=== PATIENT | male | born 1990 | race Caucasian/White ===

== ENCOUNTER → 2017-03-28 | Outpatient (CLI) | payer MEDICAID ==
[~2017-03-28] MED LIST: ASPIRIN 81M81 MG/TA2 PO; CEFTIN250 M1 PO; CEFTIN500 MG PO; CETIRIZINE; COLACE 100100 MG/CAP PO; DEPAKOTE; IBUPROFEN; LASIX 40MG TABL40 MG PO; LEVAQUIN 750MG750 M1 PO; NO HOME MEDICATIONS; NORCO 325 MG-51 TAB PO; NORCO 325 MG-7.1 TAB PO; PERCOCET 325 MG1 TA2 PO; PREDNISONE20 MG PO; PROVENTIL0.09 MG/A1 IH; ROXICODONE 55 MG/TAB PO; TYLENOL 325MG325 MG PO; TYLENOL 500MG500 MG PO; ZITHROMAX Z PA250 MG PO; ZITHROMAX500 M2 PO; ZOFRAN 4MG T4 MG/TAB PO
== END ==
LOC: ZCOL.LAB 16:31
DX: L72.3 Sebaceous cyst (principal)

== ENCOUNTER → 2017-08-17 | Outpatient (CLI) | payer MEDICAID ==
[2017-08-17 12:01] LABS: PH 5 (5-8); SQUAMOUS EPITHELIAL None Seen /hpf; URINE APPEARANCE Clear; URINE BACTERIA None Seen /hpf; URINE BILIRUBIN Negative (NEGATIVE); URINE BLOOD 3+ (NEGATIVE); URINE COLOR Yellow; URINE GLUCOSE Negative (NEGATIVE); URINE KETONE Negative (NEGATIVE); URINE UROBILINOGEN Negative (NEGATIVE); URINE WBC 0-2 /hpf
== END ==
LOC: COL.LAB 11:17
PROVIDERS: Nurse Practitioner Family
DX: R31.9 Hematuria, unspecified (principal); R35.0 Frequency of micturition

== ENCOUNTER → 2017-08-30 | Outpatient (CLI) | payer MEDICAID | LOC: COL.RAD 08:05 | DX: Q60.4 Renal hypoplasia, bilateral (principal) ==

== ENCOUNTER 2017-10-03 16:00 | Inpatient (IN) | payer MEDICAID ==
[~2017-10-03] VITALS: Ht 185.4 cm; Wt 119.7 kg
[2017-10-03] VITALS (246 sets, daily range): BP systolic 140; BP diastolic 62; PULSE 108; TEMP 99.5; O2SAT 90–100
[2017-10-03] MEDS ORDERED: XANAX 1MG1 MG PO (16:26)
[2017-10-03] MEDS ORDERED: SYNTHROID0.075 MG/T PO (16:26)
[2017-10-03 16:41] LABS: HEMATOCRIT 38.3 % (42.0-52.0); HEMOGLOBIN 13.1 g/dl (13.5-18.0); MEAN CELL VOLUME 88 fl (80.0-100.0); MEAN CORPUSCULAR HEMOGLOBIN 30 pg (27.0-31.0); MEAN CORPUSCULAR HGB CONC 34 g/dl (33.0-37.0); PLATELET COUNT 162 K/mm3 (130-400); RED BLOOD COUNT 4.35 M/mm3 (4.20-5.60)
[2017-10-03 16:47] LABS: WHITE BLOOD COUNT 1.8 K/mm3 (4.8-10.8)
[2017-10-03 16:48] LABS: ADD PATHOLOGY DIFF REVIEW NO
[2017-10-03 16:52] LABS: ADJUSTED CALCIUM 9.4 mg/dL (8.4-10.2); ALBUMIN 3.8 gm/dL (3.5-5.0); BILIRUBIN,TOTAL 3.4 mg/dL (0.0-1.0); C-REACTIVE PROTEIN 0.7 mg/dL (0.0-0.9); CALCIUM 9.2 mg/dL (8.4-10.2); CREATININE, serum 0.88 mg/dL (0.66-1.25); POTASSIUM 3.4 mmol/L (3.4-5.0); TOTAL PROTEIN 6.8 gm/dL (6.4-8.2)
[2017-10-03 17:29] LABS: BAND 16 % (0-10); EOSINOPHIL 4 % (0-4); LYMPHOCYTE 12 % (20.0-51.0); NEUTROPHILS 68 % (42.0-75.2); PLATELET ESTIMATE NORMAL (NORMAL); TOTAL CELLS COUNTED 25
[2017-10-03 17:40] LABS: COLLECTION METHOD CLEAN CATCH
[2017-10-03 17:46] LABS: MUCOUS Present /lpf; PH 5 (5-8); SQUAMOUS EPITHELIAL 0-2 /hpf; URINE APPEARANCE Clear; URINE BACTERIA None Seen /hpf; URINE BILIRUBIN Negative (NEGATIVE); URINE BLOOD 3+ (NEGATIVE); URINE COLOR Amber; URINE GLUCOSE Negative (NEGATIVE); URINE KETONE 1+ (NEGATIVE); URINE LEUKOCYTE ESTERASE Negative (NEGATIVE); URINE PROTEIN(semi-quant) Negative (NEGATIVE); URINE WBC 0-2 /hpf
[2017-10-04] VITALS (1189 sets, daily range): BP systolic 93–108; BP diastolic 37–45; PULSE 100–118; TEMP 99.7–103.3; O2SAT 79–100
[2017-10-04 05:56] LABS: HEMATOCRIT 40.1 % (42.0-52.0); HEMOGLOBIN 13.7 g/dl (13.5-18.0); MEAN CELL VOLUME 90 fl (80.0-100.0); MEAN CORPUSCULAR HEMOGLOBIN 31 pg (27.0-31.0); MEAN CORPUSCULAR HGB CONC 34 g/dl (33.0-37.0); MEAN PLATELET VOLUME 9.5 fl (7.4-10.4); PLATELET COUNT 148 K/mm3 (130-400); RED BLOOD COUNT 4.48 M/mm3 (4.20-5.60); WHITE BLOOD COUNT 12.4 K/mm3 (4.8-10.8)
[2017-10-04 06:03] LABS: ADD PATHOLOGY DIFF REVIEW NO
[2017-10-04 06:06] LABS: CALCIUM 7.9 mg/dL (8.4-10.2); CREATININE, serum 1.61 mg/dL (0.66-1.25); POTASSIUM 3.8 mmol/L (3.4-5.0)
[2017-10-04 06:16] LABS: BAND 24 % (0-10); EOSINOPHIL 3 % (0-4); LYMPHOCYTE 2 % (20.0-51.0); METAMYELOCYTE 1 % (0-0); NEUTROPHILS 67 % (42.0-75.2); ROULEAUX 1+; TOTAL CELLS COUNTED 100; TOXIC GRANULATION PRESENT
[2017-10-04 06:17] LABS: ANISOCYTOSIS 1+; MICROCYTOSIS 1+; POIKILOCYTOSIS 1+
[2017-10-04 23:18] LABS: ADJUSTED CALCIUM 8.1 mg/dL (8.4-10.2); ALBUMIN 2.4 gm/dL (3.5-5.0); CALCIUM 6.8 mg/dL (8.4-10.2); CREATININE, serum 3.24 mg/dL (0.66-1.25); POTASSIUM 4.3 mmol/L (3.4-5.0); TOTAL PROTEIN 4.9 gm/dL (6.4-8.2)
[2017-10-05] VITALS (310 sets, daily range): BP systolic 92–126; BP diastolic 38–74; PULSE 74–100; TEMP 97–99.9; O2SAT 81–100
[2017-10-05 05:00] LABS: MEAN CELL VOLUME 90 fl (80.0-100.0); MEAN CORPUSCULAR HGB CONC 33 g/dl (33.0-37.0); MEAN PLATELET VOLUME 10.3 fl (7.4-10.4); PLATELET COUNT 117 K/mm3 (130-400); WHITE BLOOD COUNT 13.5 K/mm3 (4.8-10.8)
[2017-10-05 05:08] LABS: ADJUSTED CALCIUM 8.1 mg/dL (8.4-10.2); ALBUMIN 2.5 gm/dL (3.5-5.0); BILIRUBIN,TOTAL 5.6 mg/dL (0.0-1.0); CALCIUM 6.9 mg/dL (8.4-10.2); CREATININE, serum 3.61 mg/dL (0.66-1.25); POTASSIUM 4.3 mmol/L (3.4-5.0); TOTAL PROTEIN 5.1 gm/dL (6.4-8.2)
[2017-10-05 05:17] LABS: HEMATOCRIT 35.1 % (42.0-52.0); HEMOGLOBIN 11.7 g/dl (13.5-18.0); MEAN CORPUSCULAR HEMOGLOBIN 30 pg (27.0-31.0)
[2017-10-05 05:18] LABS: ADD PATHOLOGY DIFF REVIEW NO
[2017-10-05 05:23] LABS: BAND 42 % (0-10); LYMPHOCYTE 3 % (20.0-51.0); METAMYELOCYTE 9 % (0-0); NEUTROPHILS 41 % (42.0-75.2); TOTAL CELLS COUNTED 100
[2017-10-05 05:28] LABS: ANISOCYTOSIS 2+; BURR CELLS 3+
[2017-10-05 12:06] LABS: COLLECTION METHOD CLEAN CATCH
[2017-10-05 12:56] LABS: PH 5 (5-8); SQUAMOUS EPITHELIAL 0-2 /hpf; URINE APPEARANCE Cloudy; URINE BACTERIA Rare /hpf; URINE BILIRUBIN Negative (NEGATIVE); URINE BLOOD 3+ (NEGATIVE); URINE COLOR Yellow; URINE GLUCOSE Negative (NEGATIVE); URINE KETONE Negative (NEGATIVE); URINE LEUKOCYTE ESTERASE Negative (NEGATIVE); URINE PROTEIN(semi-quant) 2+ (NEGATIVE); URINE RBC >50 /hpf; URINE UROBILINOGEN Negative (NEGATIVE)
[2017-10-06] VITALS (1016 sets, daily range): BP systolic 99–145; BP diastolic 54–89; PULSE 63–92; TEMP 97–98.6; O2SAT 93–100
[2017-10-06 05:41] LABS: HEMATOCRIT 40.4 % (42.0-52.0); HEMOGLOBIN 13.5 g/dl (13.5-18.0); MEAN CELL VOLUME 89 fl (80.0-100.0); MEAN CORPUSCULAR HEMOGLOBIN 30 pg (27.0-31.0); MEAN CORPUSCULAR HGB CONC 33 g/dl (33.0-37.0); MEAN PLATELET VOLUME 10.1 fl (7.4-10.4); PLATELET COUNT 150 K/mm3 (130-400); RED BLOOD COUNT 4.52 M/mm3 (4.20-5.60)
[2017-10-06 05:46] LABS: ADD PATHOLOGY DIFF REVIEW NO; WHITE BLOOD COUNT 20.3 K/mm3 (4.8-10.8)
[2017-10-06 05:54] LABS: CALCIUM 8.1 mg/dL (8.4-10.2); MAGNESIUM 1.4 mg/dL (1.6-2.3); PHOSPHOROUS 3.7 mg/dL (2.5-4.5); POTASSIUM 3.8 mmol/L (3.4-5.0)
[2017-10-06 06:00] LABS: CREATININE, serum 4.05 mg/dL (0.66-1.25)
[2017-10-06 06:27] LABS: BAND 45 % (0-10); BURR CELLS 1+; LYMPHOCYTE 1 % (20.0-51.0); NEUTROPHILS 53 % (42.0-75.2); PLATELET ESTIMATE NORMAL (NORMAL); TOTAL CELLS COUNTED 100
[2017-10-06 18:30] LABS: COLLECTION METHOD CLEAN CATCH
[2017-10-06 18:38] LABS: AMORPHOUS CRYSTAL Present /uL; PH 5 (5-8); SQUAMOUS EPITHELIAL 0-2 /hpf; URINE APPEARANCE Hazy; URINE BACTERIA None Seen /hpf; URINE BILIRUBIN Negative (NEGATIVE); URINE BLOOD 3+ (NEGATIVE); URINE COLOR Yellow; URINE GLUCOSE Negative (NEGATIVE); URINE KETONE Negative (NEGATIVE); URINE LEUKOCYTE ESTERASE Negative (NEGATIVE); URINE PROTEIN(semi-quant) 1+ (NEGATIVE); URINE RBC >50 /hpf; URINE UROBILINOGEN Negative (NEGATIVE)
[2017-10-06 18:39] LABS: URINE PROTEIN:CREAT RATIO 0.63 (0.00-0.14)
[2017-10-07] VITALS (628 sets, daily range): BP systolic 116–142; BP diastolic 62–75; PULSE 72–90; TEMP 97.7–98.5; O2SAT 92–100
[2017-10-07 05:51] LABS: BASO % 0.1 % (0.0-2.0); GRAN # 10.5 (1.4-6.5); LYMPH # 0.3 (1.2-3.4); LYMPH % 2.8 % (20.0-51.0); MEAN CELL VOLUME 90 fl (80.0-100.0); MEAN CORPUSCULAR HEMOGLOBIN 30 pg (27.0-31.0); MEAN CORPUSCULAR HGB CONC 34 g/dl (33.0-37.0); MEAN PLATELET VOLUME 10.4 fl (7.4-10.4); MONO # 0.5 (0.1-0.6); MONO % 4.6 % (1.7-9.3); PLATELET COUNT 114 K/mm3 (130-400); RED BLOOD COUNT 3.97 M/mm3 (4.20-5.60); WHITE BLOOD COUNT 11.4 K/mm3 (4.8-10.8)
[2017-10-07 05:55] LABS: HEMATOCRIT 35.7 % (42.0-52.0)
[2017-10-07 06:02] LABS: ADJUSTED CALCIUM 9.6 mg/dL (8.4-10.2); ALBUMIN 2.7 gm/dL (3.5-5.0); CALCIUM 8.6 mg/dL (8.4-10.2); CREATININE, serum 3.63 mg/dL (0.66-1.25); PHOSPHOROUS 3.4 mg/dL (2.5-4.5); POTASSIUM 4.3 mmol/L (3.4-5.0); TOTAL PROTEIN 5.6 gm/dL (6.4-8.2)
[2017-10-07 18:44] LABS: COLLECTION METHOD CLEAN CATCH
[2017-10-07 18:53] LABS: MUCOUS Present /lpf; PH 5 (5-8); SQUAMOUS EPITHELIAL 0-2 /hpf; URINE APPEARANCE Clear; URINE BACTERIA None Seen /hpf; URINE BILIRUBIN Negative (NEGATIVE); URINE BLOOD 3+ (NEGATIVE); URINE COLOR Yellow; URINE GLUCOSE Negative (NEGATIVE); URINE KETONE Negative (NEGATIVE); URINE LEUKOCYTE ESTERASE Negative (NEGATIVE); URINE PROTEIN(semi-quant) 1+ (NEGATIVE); URINE UROBILINOGEN Negative (NEGATIVE); URINE WBC 0-2 /hpf
[2017-10-08 00:31] VITALS: BP 99/40; PULSE 73; TEMP 97.3
[2017-10-08 03:03] VITALS: BP 127/72; PULSE 77; TEMP 97.9
[2017-10-08 07:27] LABS: COLLECTION METHOD CLEAN CATCH
[2017-10-08 07:38] LABS: MUCOUS Present /lpf; PH 5 (5-8); SQUAMOUS EPITHELIAL None Seen /hpf; URINE APPEARANCE Clear; URINE BACTERIA Rare /hpf; URINE BILIRUBIN Negative (NEGATIVE); URINE BLOOD 3+ (NEGATIVE); URINE COLOR Yellow; URINE GLUCOSE Negative (NEGATIVE); URINE KETONE Negative (NEGATIVE); URINE LEUKOCYTE ESTERASE Negative (NEGATIVE); URINE PROTEIN(semi-quant) 1+ (NEGATIVE); URINE UROBILINOGEN Negative (NEGATIVE); URINE WBC 0-2 /hpf
[2017-10-08 08:18] VITALS: BP 122/69; PULSE 75; TEMP 97.3
[2017-10-08 09:28] LABS: MEAN CELL VOLUME 90 fl (80.0-100.0); MEAN CORPUSCULAR HEMOGLOBIN 30 pg (27.0-31.0); MEAN CORPUSCULAR HGB CONC 33 g/dl (33.0-37.0); MEAN PLATELET VOLUME 10.5 fl (7.4-10.4); PLATELET COUNT 144 K/mm3 (130-400); RED BLOOD COUNT 4.01 M/mm3 (4.20-5.60); WHITE BLOOD COUNT 9.8 K/mm3 (4.8-10.8)
[2017-10-08 09:29] LABS: HEMATOCRIT 36.2 % (42.0-52.0)
[2017-10-08 09:30] LABS: ADD PATHOLOGY DIFF REVIEW NO
[2017-10-08 09:39] LABS: ADJUSTED CALCIUM 9.9 mg/dL (8.4-10.2); ALBUMIN 2.9 gm/dL (3.5-5.0); BILIRUBIN,TOTAL 0.8 mg/dL (0.0-1.0); CREATININE, serum 3.27 mg/dL (0.66-1.25); PHOSPHOROUS 2.7 mg/dL (2.5-4.5); POTASSIUM 4.3 mmol/L (3.4-5.0); TOTAL PROTEIN 5.8 gm/dL (6.4-8.2)
[2017-10-08 10:26] LABS: BAND 31 % (0-10); LYMPHOCYTE 6 % (20.0-51.0); METAMYELOCYTE 2 % (0-0); NEUTROPHILS 59 % (42.0-75.2); TOTAL CELLS COUNTED 100
[2017-10-08 10:29] LABS: PLATELET ESTIMATE NORMAL (NORMAL)
[2017-10-08 11:37] VITALS: BP 122/63; PULSE 82; TEMP 97.5
[2017-10-08 15:21] VITALS: BP 121/63; PULSE 78; TEMP 98
[2017-10-09] VITALS (7 sets, daily range): BP systolic 103–134; BP diastolic 51–69; PULSE 70–87; TEMP 97.2–98.4
[2017-10-09 07:05] LABS: MEAN CELL VOLUME 92 fl (80.0-100.0); MEAN CORPUSCULAR HGB CONC 32 g/dl (33.0-37.0); MEAN PLATELET VOLUME 10.7 fl (7.4-10.4); PLATELET COUNT 135 K/mm3 (130-400); RED BLOOD COUNT 3.95 M/mm3 (4.20-5.60); WHITE BLOOD COUNT 8.8 K/mm3 (4.8-10.8)
[2017-10-09 07:11] LABS: HEMATOCRIT 36.3 % (42.0-52.0); HEMOGLOBIN 11.7 g/dl (13.5-18.0); MEAN CORPUSCULAR HEMOGLOBIN 30 pg (27.0-31.0)
[2017-10-09 07:12] LABS: ADD PATHOLOGY DIFF REVIEW NO; ADJUSTED CALCIUM 9.8 mg/dL (8.4-10.2); ALBUMIN 2.8 gm/dL (3.5-5.0); BILIRUBIN,TOTAL 0.5 mg/dL (0.0-1.0); CALCIUM 8.8 mg/dL (8.4-10.2); CREATININE, serum 2.8 mg/dL (0.66-1.25); PHOSPHOROUS 3.6 mg/dL (2.5-4.5); POTASSIUM 4.2 mmol/L (3.4-5.0); TOTAL PROTEIN 5.5 gm/dL (6.4-8.2)
[2017-10-09 11:55] LABS: BAND 15 % (0-10); BASOPHIL 1 % (0-2); LYMPHOCYTE 8 % (20.0-51.0); METAMYELOCYTE 3 % (0-0); NEUTROPHILS 66 % (42.0-75.2); PLATELET ESTIMATE NORMAL (NORMAL); TOTAL CELLS COUNTED 100; TOXIC GRANULATION PRESENT
[2017-10-10 04:16] VITALS: BP 123/61; PULSE 70; TEMP 97.9
[2017-10-10 06:45] LABS: HEMATOCRIT 40.2 % (42.0-52.0); HEMOGLOBIN 13.2 g/dl (13.5-18.0); MEAN CELL VOLUME 91 fl (80.0-100.0); MEAN CORPUSCULAR HEMOGLOBIN 30 pg (27.0-31.0); MEAN CORPUSCULAR HGB CONC 33 g/dl (33.0-37.0); MEAN PLATELET VOLUME 9.8 fl (7.4-10.4); PLATELET COUNT 167 K/mm3 (130-400); WHITE BLOOD COUNT 10.3 K/mm3 (4.8-10.8)
[2017-10-10 06:52] LABS: ADD PATHOLOGY DIFF REVIEW NO
[2017-10-10 06:57] LABS: CREATININE, serum 2.42 mg/dL (0.66-1.25); MAGNESIUM 1.9 mg/dL (1.6-2.3); POTASSIUM 3.8 mmol/L (3.4-5.0)
[2017-10-10 07:45] VITALS: BP 127/62; PULSE 77; TEMP 98.9
[2017-10-10 08:18] LABS: BAND 12 % (0-10); LYMPHOCYTE 20 % (20.0-51.0); METAMYELOCYTE 1 % (0-0); NEUTROPHILS 65 % (42.0-75.2); TOTAL CELLS COUNTED 100
[2017-10-10 08:19] LABS: PLATELET ESTIMATE NORMAL (NORMAL)
[2017-10-10 11:37] VITALS: BP 124/61; PULSE 73; TEMP 97.9
[2017-10-10] MEDS ORDERED: ROCEPHIN VIA1 G/VIAL IJ (11:44)
[2017-10-10] MEDS ORDERED: TUMS ULTRA ST1000 MG PO (11:49)
[2017-10-10] MEDS ORDERED: ACIDOPHILIS PO (11:51)
[2017-10-10] MEDS ORDERED: NYAMYC100000 U/G TOP (11:51)
== END 2017-10-10 16:10 | disposition home or self-care (01) | DRG 871 ==
LOC: COL.ER 16:00 → ICU 17:01 → MEDICAL 17:01
PROVIDERS: Emergency Medicine; Internal Medicine; Nurse Practitioner Family; Surgery
PROC: 0JPT0WZ Removal of Totally Implantable Vascular Access Device from Trunk Subcutaneous Tissue and Fascia, Open Approach (ICD-10-PCS; principal; 2017-10-09 09:00)
DX: A41.9 Sepsis, unspecified organism (principal); R65.21 Severe sepsis with septic shock; N17.0 Acute kidney failure with tubular necrosis; T80.212A Local infection due to central venous catheter, initial encounter; L03.115 Cellulitis of right lower limb; D69.3 Immune thrombocytopenic purpura; E87.2 Acidosis; Q60.3 Renal hypoplasia, unilateral; I89.0 Lymphedema, not elsewhere classified; Q27.32 Arteriovenous malformation of vessel of lower limb; K21.9 Gastro-esophageal reflux disease without esophagitis; E03.9 Hypothyroidism, unspecified; N18.9 Chronic kidney disease, unspecified; E88.09 Other disorders of plasma-protein metabolism, not elsewhere classified; I50.83 High output heart failure; E83.51 Hypocalcemia; L27.0 Generalized skin eruption due to drugs and medicaments taken internally; T36.8X5A Adverse effect of other systemic antibiotics, initial encounter
CPT/HCPCS: 99232-AI; 99233-AI; 99239; C1751; J0692; J0696; J1170; J1200; J1644; J1650; J1720; J2405; J2543; J2704; J3010; J3370; J3480; J7030; J7040; J7060

== ENCOUNTER 2017-10-17 08:00 | Outpatient (RCR) | payer MEDICAID ==
[2017-10-11 12:54] VITALS: BP 128/70; PULSE 72; TEMP 98.2
[2017-10-12 08:31] VITALS: BP 135/78; PULSE 71; TEMP 98.4
[2017-10-13 08:12] VITALS: BP 139/76; PULSE 73; TEMP 98.1
[2017-10-14 08:27] VITALS: BP 139/69; PULSE 72; TEMP 98.4
[2017-10-15 08:07] VITALS: BP 153/87; PULSE 88; TEMP 98
[2017-10-15 08:43] LABS: HEMOGLOBIN 12.4 g/dl (13.5-18.0); MEAN CELL VOLUME 91 fl (80.0-100.0); MEAN CORPUSCULAR HEMOGLOBIN 30 pg (27.0-31.0); MEAN CORPUSCULAR HGB CONC 33 g/dl (33.0-37.0); MEAN PLATELET VOLUME 9.2 fl (7.4-10.4); PLATELET COUNT 212 K/mm3 (130-400); RED BLOOD COUNT 4.19 M/mm3 (4.20-5.60); WHITE BLOOD COUNT 5.2 K/mm3 (4.8-10.8)
[2017-10-15 09:05] LABS: ADJUSTED CALCIUM 9.5 mg/dL (8.4-10.2); ALBUMIN 3.2 gm/dL (3.5-5.0); BILIRUBIN,TOTAL 0.9 mg/dL (0.0-1.0); CALCIUM 8.9 mg/dL (8.4-10.2); CREATININE, serum 1.41 mg/dL (0.66-1.25)
[2017-10-16 08:43] VITALS: BP 144/84; PULSE 80; TEMP 98
[~2017-10-17] VITALS: Ht 185.4 cm; Wt 139.0 kg
[~2017-10-17 08:00] MED LIST changes: +ACIDOPHILIS PO; +NYAMYC100000 U/G TOP; +ROCEPHIN VIA1 G/VIAL IJ; +SYNTHROID0.075 MG/T PO; +TUMS ULTRA ST1000 MG PO; +XANAX 1MG1 MG PO
[2017-10-17 08:15] VITALS: BP 149/88; PULSE 79; TEMP 97.9
== END 2017-10-17 10:35 | disposition home or self-care (01) ==
LOC: EUO 08:00
PROVIDERS: Internal Medicine
DX: L03.90 Cellulitis, unspecified (principal); N28.9 Disorder of kidney and ureter, unspecified; I10 Essential (primary) hypertension; R57.9 Shock, unspecified
CPT/HCPCS: J0696; J1644

== ENCOUNTER 2017-11-30 07:38 | Day surgery (SDC) | payer MEDICAID ==
[~2017-11-30] VITALS: Ht 185.4 cm; Wt 131.8 kg
[2017-11-30 08:29] VITALS: BP 127/62; PULSE 92; TEMP 97.8
[2017-11-30 08:45] LABS: CALCIUM 9.3 mg/dL (8.4-10.2); CREATININE, serum 0.82 mg/dL (0.66-1.25); POTASSIUM 4.2 mmol/L (3.4-5.0); TOTAL PROTEIN 6.9 gm/dL (6.4-8.2)
[2017-11-30 10:29] VITALS: BP 145/76; PULSE 95; TEMP 99
[2017-11-30 10:45] VITALS: BP 129/59; PULSE 92
[2017-11-30 11:00] VITALS: BP 117/55; PULSE 90
== END 2017-11-30 11:20 | disposition home or self-care (01) ==
LOC: SDCO 07:38
DX: I89.0 Lymphedema, not elsewhere classified (principal); I20.9 Angina pectoris, unspecified; J45.909 Unspecified asthma, uncomplicated; I11.0 Hypertensive heart disease with heart failure; I50.9 Heart failure, unspecified; K21.9 Gastro-esophageal reflux disease without esophagitis; E03.9 Hypothyroidism, unspecified; F32.9 Major depressive disorder, single episode, unspecified; F41.9 Anxiety disorder, unspecified; Z95.818 Presence of other cardiac implants and grafts; Z90.49 Acquired absence of other specified parts of digestive tract; Z87.2 Personal history of diseases of the skin and subcutaneous tissue
CPT/HCPCS: OP; C1788; J0690; J1644; J2704; J3010; J7030

== ENCOUNTER → 2018-02-01 | Outpatient (CLI) | payer MEDICAID | LOC: COL.RAD 08:15 | DX: I86.8 Varicose veins of other specified sites (principal); Z86.79 Personal history of other diseases of the circulatory system ==

== ENCOUNTER 2018-02-18 12:30 | Outpatient (RCR) | payer MEDICAID | END 2018-02-19 | LOC: MKS.ESL.PT | DX: I89.0 Lymphedema, not elsewhere classified (principal); Q27.30 Arteriovenous malformation, site unspecified ==

== ENCOUNTER 2018-02-18 15:49 | Outpatient (CLI) | payer MEDICAID ==
[~2018-02-18] VITALS: Ht 185.4 cm; Wt 129.9 kg
[2018-02-18 16:13] VITALS: BP 116/69; PULSE 85; TEMP 98
== END 2018-02-18 16:31 | disposition home or self-care (01) ==
LOC: EUO 15:49
DX: D69.3 Immune thrombocytopenic purpura (principal); T80.219S Unspecified infection due to central venous catheter, sequela; B99.9 Unspecified infectious disease; Z45.2 Encounter for adjustment and management of vascular access device
CPT/HCPCS: J1644

== ENCOUNTER → 2018-03-20 | Outpatient (CLI) | payer MEDICAID ==
[~2018-03-20] VITALS: Ht 185.4 cm; Wt 127.6 kg
[2018-03-20 13:40] VITALS: BP 137/80; PULSE 84; TEMP 98.3
== END ==
LOC: EUO 13:00
DX: D69.3 Immune thrombocytopenic purpura (principal); T80.219S Unspecified infection due to central venous catheter, sequela

== ENCOUNTER 2018-03-29 15:00 | Outpatient (RCR) | payer MEDICAID | END 2018-06-16 | disposition still patient (30) | LOC: MKS.ESL.PT | DX: I89.0 Lymphedema, not elsewhere classified (principal); Q27.30 Arteriovenous malformation, site unspecified ==

== ENCOUNTER 2018-04-25 15:10 | Outpatient (CLI) | payer MEDICAID ==
[~2018-04-25] VITALS: Ht 185.4 cm; Wt 128.0 kg
[2018-04-25 15:38] VITALS: BP 127/72; PULSE 81; TEMP 98.4
== END 2018-04-25 15:45 | disposition home or self-care (01) ==
LOC: EUO 15:10
DX: D69.3 Immune thrombocytopenic purpura (principal); T80.219S Unspecified infection due to central venous catheter, sequela
CPT/HCPCS: J1644

== ENCOUNTER 2018-05-24 14:07 | Outpatient (CLI) | payer MEDICAID ==
[~2018-05-24] VITALS: Ht 185.4 cm; Wt 132.0 kg
[2018-05-24 14:30] VITALS: BP 134/77; PULSE 98; TEMP 98.4
== END 2018-05-24 14:36 | disposition home or self-care (01) ==
LOC: EUO 14:07
DX: T80.219S Unspecified infection due to central venous catheter, sequela (principal); D69.3 Immune thrombocytopenic purpura
CPT/HCPCS: J1644

== ENCOUNTER 2018-06-24 12:04 | Outpatient (CLI) | payer MEDICAID ==
[~2018-06-24] VITALS: Ht 185.4 cm; Wt 134.5 kg
[2018-06-24 12:18] VITALS: BP 133/75; PULSE 84; TEMP 98.3
== END 2018-06-24 12:48 | disposition home or self-care (01) ==
LOC: EUO 12:04
DX: T80.219S Unspecified infection due to central venous catheter, sequela (principal); D69.3 Immune thrombocytopenic purpura; Z45.2 Encounter for adjustment and management of vascular access device; Z95.828 Presence of other vascular implants and grafts
CPT/HCPCS: J1644

== ENCOUNTER 2018-07-29 12:54 | Outpatient (CLI) | payer MEDICAID ==
[~2018-07-29] VITALS: Ht 185.4 cm; Wt 134.8 kg
[2018-07-29 13:07] VITALS: BP 128/72; PULSE 88; TEMP 98
== END 2018-07-29 13:16 | disposition home or self-care (01) ==
LOC: EUO 12:54
DX: T80.219S Unspecified infection due to central venous catheter, sequela (principal); D69.3 Immune thrombocytopenic purpura
CPT/HCPCS: J1644

== ENCOUNTER 2018-08-26 12:48 | Outpatient (CLI) | payer MEDICAID ==
[~2018-08-26] VITALS: Ht 185.4 cm; Wt 135.1 kg
[2018-08-26 13:06] VITALS: BP 125/76; PULSE 87; TEMP 98.9
== END 2018-08-26 13:35 | disposition home or self-care (01) ==
LOC: EUO 12:48
DX: D69.3 Immune thrombocytopenic purpura (principal); T80.219S Unspecified infection due to central venous catheter, sequela
CPT/HCPCS: J1644

== ENCOUNTER 2018-09-23 12:58 | Outpatient (CLI) | payer MEDICAID ==
[~2018-09-23] VITALS: Ht 185.4 cm; Wt 120.7 kg
[2018-09-23 13:29] LABS: BASO # 0.1 (0.0-0.2); BASO % 1.6 % (0.0-2.0); EOS # 0.1 (0.0-0.7); EOS % 2.1 % (0-4.0); GRAN # 4.1 (1.4-6.5); GRAN % 72.2 % (42.2-75.2); HEMOGLOBIN 15.1 g/dl (13.5-18.0); LYMPH # 0.9 (1.2-3.4); LYMPH % 16.1 % (20.0-51.0); MEAN CELL VOLUME 88 fl (80.0-100.0); MEAN CORPUSCULAR HEMOGLOBIN 30 pg (27.0-31.0); MEAN CORPUSCULAR HGB CONC 34 g/dl (33.0-37.0); MEAN PLATELET VOLUME 8.8 fl (7.4-10.4); MONO # 0.4 (0.1-0.6); MONO % 7.5 % (1.7-9.3); PLATELET COUNT 210 K/mm3 (130-400); RED BLOOD COUNT 4.98 M/mm3 (4.20-5.60); REDCELL DISTRIBUTION WIDTH-CV 12.8 % (11.5-14.5)
[2018-09-23] MEDS ORDERED: ZITHROMAX500 M2 PO (13:47)
[2018-09-23] MEDS ORDERED: CEFTIN500 MG PO (13:50)
[2018-09-23 13:58] VITALS: BP 133/75; PULSE 94; TEMP 98.2
== END 2018-09-23 13:30 | disposition home or self-care (01) ==
LOC: EUO 12:58
PROVIDERS: Family Medicine
DX: T80.219S Unspecified infection due to central venous catheter, sequela (principal); D69.3 Immune thrombocytopenic purpura
CPT/HCPCS: J1644

== ENCOUNTER 2018-10-23 12:48 | Outpatient (CLI) | payer MEDICAID ==
[~2018-10-23] VITALS: Ht 185.4 cm; Wt 139.6 kg
[2018-10-23 13:14] VITALS: BP 138/76; PULSE 87; TEMP 98.4
== END 2018-10-23 13:15 | disposition home or self-care (01) ==
LOC: EUO 12:48
DX: D69.3 Immune thrombocytopenic purpura (principal); T80.219S Unspecified infection due to central venous catheter, sequela
CPT/HCPCS: J1644

== ENCOUNTER 2018-11-21 12:41 | Outpatient (CLI) | payer MEDICAID ==
[2018-11-21 12:54] VITALS: BP 117/71; PULSE 83; TEMP 97.6
== END 2018-11-21 13:17 | disposition home or self-care (01) ==
LOC: EUO 12:41
DX: D69.3 Immune thrombocytopenic purpura (principal); T80.219S Unspecified infection due to central venous catheter, sequela
CPT/HCPCS: J1644

== ENCOUNTER 2018-12-19 14:05 | Outpatient (CLI) | payer MEDICAID ==
[~2018-12-19] VITALS: Ht 185.4 cm; Wt 137.7 kg
[2018-12-19 14:00] VITALS: BP 118/70; PULSE 87; TEMP 98.7
== END 2018-12-19 17:25 | disposition home or self-care (01) ==
LOC: EUO 14:05
DX: D69.3 Immune thrombocytopenic purpura (principal); T80.219S Unspecified infection due to central venous catheter, sequela
CPT/HCPCS: J1644

== ENCOUNTER 2019-01-16 14:03 | Outpatient (CLI) | payer MEDICAID ==
[~2019-01-16] VITALS: Ht 185.4 cm; Wt 139.0 kg
[2019-01-16 14:30] VITALS: BP 125/77; PULSE 83; TEMP 98.4
== END 2019-01-16 14:57 | disposition home or self-care (01) ==
LOC: EUO 14:03
DX: T80.219S Unspecified infection due to central venous catheter, sequela (principal); D69.3 Immune thrombocytopenic purpura
CPT/HCPCS: J1644

== ENCOUNTER 2019-03-19 09:29 | Outpatient (CLI) | payer MEDICAID ==
[~2019-03-19] VITALS: Ht 185.4 cm; Wt 160.0 kg
[~2019-03-19 09:29] MED LIST changes: +FERROUS SU325 MG/TAB PO; +PROAMATINE 5MG T5 MG PO; +VITAMIN B-1000 MCG/T PO
[2019-03-19 10:40] VITALS: BP 124/68; PULSE 79; TEMP 98.1
[2019-03-19 10:49] LABS: HEMATOCRIT 42.2 % (42.0-52.0); HEMOGLOBIN 14.2 g/dl (13.5-18.0); MEAN CELL VOLUME 89 fl (80.0-100.0); MEAN CORPUSCULAR HEMOGLOBIN 30 pg (27.0-31.0); MEAN CORPUSCULAR HGB CONC 34 g/dl (33.0-37.0); MEAN PLATELET VOLUME 8.9 fl (7.4-10.4); PLATELET COUNT 182 K/mm3 (130-400); RED BLOOD COUNT 4.76 M/mm3 (4.20-5.60); REDCELL DISTRIBUTION WIDTH-CV 13.2 % (11.5-14.5)
[2019-03-19 14:52] LABS: BASO # 0.1 (0.0-0.2); BASO % 1.7 % (0.0-2.0); EOS # 0.3 (0.0-0.7); EOS % 6.5 % (0-4.0); GRAN # 2.7 (1.4-6.5); GRAN % 65.1 % (42.2-75.2); LYMPH # 0.7 (1.2-3.4); LYMPH % 17.6 % (20.0-51.0); MONO # 0.4 (0.1-0.6); MONO % 8.9 % (1.7-9.3)
== END 2019-03-19 10:53 | disposition home or self-care (01) ==
LOC: EUO 09:29
PROVIDERS: Family Medicine
DX: D69.3 Immune thrombocytopenic purpura (principal); T80.219S Unspecified infection due to central venous catheter, sequela
CPT/HCPCS: J1644

== ENCOUNTER 2019-04-25 10:51 | Outpatient (CLI) | payer MEDICAID ==
[~2019-04-25] VITALS: Ht 185.4 cm; Wt 142.0 kg
[2019-04-25 11:14] VITALS: BP 137/81; PULSE 99; TEMP 98.2
== END 2019-04-25 11:58 | disposition home or self-care (01) ==
LOC: EUO 10:51
DX: D69.3 Immune thrombocytopenic purpura (principal); T80.219S Unspecified infection due to central venous catheter, sequela
CPT/HCPCS: J1644

== ENCOUNTER 2019-05-19 09:22 | Outpatient (CLI) | payer MEDICAID ==
[~2019-05-19] VITALS: Ht 185.4 cm; Wt 134.0 kg
[2019-05-19 09:45] VITALS: BP 129/76; PULSE 97; TEMP 98.2
== END 2019-05-19 09:52 | disposition home or self-care (01) ==
LOC: EUO 09:22
DX: D69.3 Immune thrombocytopenic purpura (principal); T80.219S Unspecified infection due to central venous catheter, sequela
CPT/HCPCS: J1644

== ENCOUNTER 2019-06-23 11:38 | Outpatient (CLI) | payer MEDICAID ==
[~2019-06-23] VITALS: Ht 185.4 cm; Wt 178.0 kg
[2019-06-23 12:13] VITALS: BP 122/77; PULSE 96; TEMP 97.9
== END 2019-06-24 17:35 | disposition home or self-care (01) ==
LOC: EUO 11:38
DX: D69.3 Immune thrombocytopenic purpura (principal); T80.219S Unspecified infection due to central venous catheter, sequela
CPT/HCPCS: J1644

== ENCOUNTER 2019-07-25 10:48 | Outpatient (CLI) | payer MEDICAID ==
[~2019-07-25] VITALS: Ht 185.4 cm; Wt 125.9 kg
[2019-07-25 11:11] VITALS: BP 135/88; PULSE 78; TEMP 98
[2019-07-25] MEDS ORDERED: SYNTHROID0.075 MG/T PO (11:11)
== END 2019-07-25 13:42 | disposition home or self-care (01) ==
LOC: EUO 10:48
DX: D69.3 Immune thrombocytopenic purpura (principal); T80.219S Unspecified infection due to central venous catheter, sequela
CPT/HCPCS: J1644

== ENCOUNTER 2019-08-26 13:42 | Outpatient (CLI) | payer MEDICAID ==
[~2019-08-26] VITALS: Ht 185.4 cm; Wt 132.1 kg
[2019-08-26 14:45] VITALS: BP 130/69; PULSE 97; TEMP 99
[2019-08-26 15:15] LABS: BASO # 0.1 (0.0-0.2); BASO % 1.2 % (0.0-2.0); EOS # 0.1 (0.0-0.7); EOS % 1.9 % (0-4.0); GRAN # 3.7 (1.4-6.5); GRAN % 71.2 % (42.2-75.2); HEMATOCRIT 43.2 % (42.0-52.0); HEMOGLOBIN 14.4 g/dl (13.5-18.0); LYMPH # 0.8 (1.2-3.4); LYMPH % 16.2 % (20.0-51.0); MEAN CELL VOLUME 91 fl (80.0-100.0); MEAN CORPUSCULAR HEMOGLOBIN 30 pg (27.0-31.0); MEAN CORPUSCULAR HGB CONC 33 g/dl (33.0-37.0); MONO # 0.5 (0.1-0.6); MONO % 9.1 % (1.7-9.3); PLATELET COUNT 213 K/mm3 (130-400); RED BLOOD COUNT 4.75 M/mm3 (4.20-5.60); REDCELL DISTRIBUTION WIDTH-CV 12.9 % (11.5-14.5)
== END 2019-08-26 18:12 | disposition home or self-care (01) ==
LOC: EUO 13:42
PROVIDERS: Family Medicine
DX: D69.3 Immune thrombocytopenic purpura (principal); T80.219S Unspecified infection due to central venous catheter, sequela
CPT/HCPCS: J1644

== ENCOUNTER → 2022-04-18 | Outpatient (CLI) | payer MEDICAID | LOC: COL.RAD 09:16 | DX: Z45.2 Encounter for adjustment and management of vascular access device (principal) | CPT/HCPCS: Q9967 ==

== ENCOUNTER 2022-05-09 09:19 | Day surgery (SDC) | payer MEDICAID ==
[~2022-05-09] VITALS: Ht 185.4 cm; Wt 140.0 kg
[2022-05-09 10:03] VITALS: BP 132/80; PULSE 86; TEMP 98.7
[2022-05-09 12:00] VITALS: BP 120/65; PULSE 94; TEMP 97.9
[2022-05-09] MEDS ORDERED: NORCO 325 MG-51 TAB PO (12:08)
[2022-05-09 12:15] VITALS: BP 119/71; PULSE 81
[2022-05-09 12:30] VITALS: BP 110/82; PULSE 89
--- NOTE | 2022-05-09 13:28 | NUR ---
1200 - PT arrives and was settled by Dameon BUI. Written report obtained. 1215 - PT oriented to room and call moore, within reach. VSS. PT provided a warm muffin and ice water to drink. PT denies nausea and pain. Mother remains present. 1230 - VSS PT expressed desire to be discharged. Call moore remains within reach. 1245 - IV discontinued. Catheter tip intact. Pressure bandage applied. NO redness or swelling noted. DC instructions and educational material reviewed with the PT who veralized understanding. PT signed related paperwork. Questions answered to PT satisfaction. Call moore remains within reach. Mother left to bring car to PT entrence.
--- NOTE | 2022-05-09 13:32 | NUR ---
[place] [facility] [place] to the PT entrence. PT has DC packet and personal belongings, and was transferred into the care of his mother who is present to drive private car.
== END 2022-05-09 13:33 | disposition home or self-care (01) ==
LOC: SDCO 09:19
DX: Z45.2 Encounter for adjustment and management of vascular access device (principal)
CPT/HCPCS: C1788; J0690; J1644; J2704; J3010; J7120

== ENCOUNTER → 2024-07-04 | Outpatient (REF) | payer MEDICAID ==
[2024-07-04 17:15] LABS: BAND 6 % (0-10); LYMPHOCYTE 13 % (20.0-51.0); NEUTROPHILS 74 % (42.0-75.2)
[2024-07-04 17:16] LABS: ANISOCYTOSIS 1+; PLATELET ESTIMATE NORMAL (NORMAL)
== END ==
LOC: ZCOL.LAB 14:12
PROVIDERS: Physician Assistant
DX: D69.3 Immune thrombocytopenic purpura (principal)